=== PATIENT | male | born 1960 | race Two or more races ===

== ENCOUNTER 2021-10-16 05:08 | Emergency (ER) | payer OTHER ==
[~2021-10-16] VITALS: Ht 162.6 cm; Wt 81.6 kg
--- NOTE | 2021-10-16 05:26 | NUR ---
PATIENT BIBFAMILY C/O CP STARTED AT MIDNIGHT WITH ON AND OFF LEFT ARM NUMBNESS. PATIENT IS A/0 X 4, RR EVEN AND UNLABORED. NO SOB NOTED. PATIENT CONNECTED TO CARDIAC AND POX MONITOR.
--- NOTE | 2021-10-16 06:03 | NUR ---
LAB AT BEDSIDE
[2021-10-16 06:17] LABS: BASOPHILS # (AUTO) 0.1 K/uL (0.0-0.2); HEMATOCRIT 44 % (39-51); HEMOGLOBIN 14.8 g/dL (13.5-17.5); LYMPHOCYTES % (AUTO) 34.1 % (20.0-44.0); MEAN CORPUSCULAR HGB CONC 34 g/dl (31.0-36.0); MEAN CORPUSCULAR VOLUME 98 fL (80-96); MONOCYTES # (AUTO) 0.7 K/uL (0.1-1.30); MONOCYTES % (AUTO) 8.4 % (2.0-12.0); NEUTROPHILS # (AUTO) 4.6 K/uL (1.8-8.9); NEUTROPHILS % (AUTO) 51.5 % (43.0-81.0); PLATELET COUNT (AUTO) 132 K/uL (150-450); RED BLOOD CELL COUNT(AUTO) 4.52 MIL/uL (4.5-6.0); WHITE BLOOD COUNT (AUTO) 8.9 K/uL (4.3-11.0)
--- NOTE | 2021-10-16 06:22 | NUR ---
XRAY AT BEDSIDE
[2021-10-16] MEDS ORDERED: METOPROLOL TARTRATE 25 MG TABLET ONE (06:27)
[2021-10-16] MEDS ORDERED: ASPIRIN 81 MG TAB.CHEW ONE (06:28)
[2021-10-16] MEDS ORDERED: METOPROLOL TARTRATE 25 MG TABLET PO ONE (06:30)
[2021-10-16] MEDS ORDERED: ASPIRIN 81 MG TAB.CHEW PO ONE (06:30)
[2021-10-16 06:31] LABS: CALCIUM, SERUM 9.3 mg/dL (8.5-10.1); CARBON DIOXIDE 31 mmol/L (21-32); CHLORIDE 102 mmol/L (98-107); CREATININE 0.9 mg/dL (0.6-1.3); GLUCOSE 128 mg/dL (74-106); POTASSIUM 3.9 mmol/L (3.5-5.1); SODIUM SERUM 139 mmol/L (136-145); UREA NITROGEN, BLOOD 12 mg/dL (7-18)
--- NOTE | 2021-10-16 08:00 | NUR ---
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 WILL CONTINUE TO MONITOR.
--- NOTE | 2021-10-16 08:48 | NUR ---
ER PHLEB AT BEDSIDE FOR REPEAT TROPONIN.
[2021-10-16 10:16] VITALS: BP 138/76
--- NOTE | 2021-10-16 10:16 | NUR ---
IV removed. Catheter intact and site benign. Pressure and 4x4 applied to site. No bleeding noted.Patient discharged to home in stable condition. Written and verbal after care instructions given. Patient verbalizes understanding of instruction.
== END 2021-10-16 10:19 | disposition home or self-care (01) ==
LOC: ER 05:17 → EDBD 05:17 → ER 10:19
DX: I16.0 Hypertensive urgency (principal); R07.89 Other chest pain; I10 Essential (primary) hypertension; E11.9 Type 2 diabetes mellitus without complications; Z88.0 Allergy status to penicillin; Z60.2 Problems related to living alone
CPT/HCPCS: 36415; 71045-TC; 80048-TC; 84484-TC; 85025-TC

== ENCOUNTER 2023-05-17 20:14 | Emergency (ER) | payer OTHER ==
[~2023-05-17] VITALS: Ht 162.6 cm; Wt 79.4 kg
[2023-05-17 20:35] VITALS: TEMP 98.4
[2023-05-17 20:54] LABS: BASOPHILS # (AUTO) 0.1 K/uL (0.0-0.2); BASOPHILS % (AUTO) 0.7 % (0.0-2.0); EOSINOPHILS # (AUTO) 0.6 K/uL (0.0-0.7); EOSINOPHILS % (AUTO) 7.4 % (0.0-6.0); HEMATOCRIT 42 % (39-51); HEMOGLOBIN 14.2 g/dL (13.5-17.5); LYMPHOCYTES # (AUTO) 2.6 K/uL (0.8-4.8); LYMPHOCYTES % (AUTO) 30.3 % (20.0-44.0); MEAN CORPUSCULAR HEMOGLOBIN 32 PG (26.0-33.0); MEAN CORPUSCULAR HGB CONC 33 g/dl (31.0-36.0); MEAN CORPUSCULAR VOLUME 97 fL (80-96); MONOCYTES # (AUTO) 0.7 K/uL (0.1-1.30); MONOCYTES % (AUTO) 8.5 % (2.0-12.0); NEUTROPHILS # (AUTO) 4.6 K/uL (1.8-8.9); NEUTROPHILS % (AUTO) 53.1 % (43.0-81.0); PLATELET COUNT (AUTO) 223 K/uL (150-450); RED BLOOD CELL COUNT(AUTO) 4.37 MIL/uL (4.5-6.0); RED CELL DISTRIBUTION WIDTH 13.4 % (11.5-15.0); WHITE BLOOD COUNT (AUTO) 8.6 K/uL (4.3-11.0)
[2023-05-17 21:02] LABS: CALCIUM, SERUM 8.9 mg/dL (8.5-10.1); CARBON DIOXIDE 28 mmol/L (21-32); CHLORIDE 103 mmol/L (98-107); CREATININE 0.9 mg/dL (0.6-1.3); GLUCOSE 104 mg/dL (74-106); POTASSIUM 4.1 mmol/L (3.5-5.1); SODIUM SERUM 139 mmol/L (136-145); UREA NITROGEN, BLOOD 12 mg/dL (7-18)
[2023-05-17 22:13] VITALS: BP 136/83; O2SAT 99
== END 2023-05-17 22:13 | disposition home or self-care (01) ==
LOC: ER 20:15
DX: R07.9 Chest pain, unspecified (principal); I10 Essential (primary) hypertension; E78.5 Hyperlipidemia, unspecified; E11.9 Type 2 diabetes mellitus without complications; J45.909 Unspecified asthma, uncomplicated; Z88.0 Allergy status to penicillin; Z60.2 Problems related to living alone
CPT/HCPCS: 36415; 71045-TC; 80048-TC; 84484-TC; 85025-TC